=== PATIENT | female | born 1940 | race Two or more races ===

== ENCOUNTER → 2017-06-18 11:44 | Outpatient (CLI) | payer OTHER | END | disposition home or self-care (01) | LOC: LAB 11:44 | DX: E03.8 Other specified hypothyroidism (principal); D50.0 Iron deficiency anemia secondary to blood loss (chronic); I10 Essential (primary) hypertension ==

== ENCOUNTER → 2017-06-18 11:55 | Outpatient (CLI) | payer OTHER | END | disposition home or self-care (01) | LOC: RAD 11:55 | DX: M25.512 Pain in left shoulder (principal) ==

== ENCOUNTER 2017-06-18 12:30 | Outpatient (CLI) | payer OTHER | END 2017-06-18 17:00 | disposition home or self-care (01) | LOC: SONOGRAMA 12:30 | DX: M25.512 Pain in left shoulder (principal) ==

== ENCOUNTER 2018-01-14 11:35 | Outpatient (CLI) | payer OTHER | END 2018-01-14 19:57 | disposition home or self-care (01) | LOC: RAD 11:35 | DX: M19.012 Primary osteoarthritis, left shoulder (principal) ==

== ENCOUNTER 2019-05-23 08:51 | Outpatient (CLI) | payer OTHER | END 2019-05-23 08:58 | disposition home or self-care (01) | LOC: LAB 08:51 | DX: I10 Essential (primary) hypertension (principal); E78.2 Mixed hyperlipidemia ==

== ENCOUNTER 2021-09-06 09:39 | Outpatient (CLI) | payer OTHER | END 2021-09-06 09:47 | disposition home or self-care (01) | LOC: LAB 09:39 | PROVIDERS: ATTEND Internal Medicine Endocrinology, Diabetes & Metabolism | DX: E04.1 Nontoxic single thyroid nodule (principal); R10.9 Unspecified abdominal pain; E78.2 Mixed hyperlipidemia ==

== ENCOUNTER 2021-09-28 13:01 | Outpatient (CLI) | payer OTHER ==
[~2021-09-28 13:01] MED LIST: COREG CR10 MG; IBU800 MG PO; SYNTHROID150 MCG
== END 2021-09-28 13:08 | disposition home or self-care (01) ==
LOC: RAD 13:01
PROVIDERS: ATTEND Internal Medicine
DX: R05.9 Cough, unspecified (principal)

== ENCOUNTER 2021-11-06 10:29 | Inpatient (IN) | payer OTHER ==
[~2021-11-06] VITALS: Ht 121.9 cm; Wt 97.5 kg
[2021-11-06] MEDS ORDERED: CAMBIA50 MG (11:16)
[2021-11-06] MEDS ORDERED: ULTRACET PO (11:16)
--- NOTE | 2021-11-06 11:19 | NUR ---
SE RECIBE PTE ALERTA Y ORIENTADA X3 CUAL REFIREE QUE EN LOS PASDOS 3 OLIVEIRA SE LE PRINGLE DIFICULTADO RESPIRAR. PTE SAT 96% Y EN AUSCULTACION PRESENTA LEVE RONQUIDO LADO SUPERIOR IZQ . SE AUDELIA S/V Y SE UBICA.
--- NOTE | 2021-11-06 12:11 | NUR ---
SE RECIBE PTE FEMENINA DE 80 YRS ALERTA CONCITNE Y TRANQUILA EN COMPANIA DE FAMLIAR. PTE ES EVALUADA POR LA JOSE, LOERA QUIEN ORDENA TRATAMIENTO LA CUAL S EJECUTA.
--- NOTE | 2021-11-06 16:26 | NUR ---
PTE REHUSA REALZARSE CT DE PECHO ORDENADO. REFIERE SER CLAUSTROFOBICA.
== END 2021-11-16 12:51 | disposition designated cancer center or children's hospital (05) | DRG 291 ==
LOC: ER 10:29 → MEDI 21:39
PROVIDERS: ADMIT Internal Medicine; ATTEND Internal Medicine
PROC: 3E0F7GC Introduction of Other Therapeutic Substance into Respiratory Tract, Via Natural or Artificial Opening (ICD-10-PCS; principal; 2021-11-06)
PROC: BW24ZZZ Computerized Tomography (CT Scan) of Chest and Abdomen (ICD-10-PCS; 2021-11-06)
PROC: 3E0F7SF Introduction of Other Gas into Respiratory Tract, Via Natural or Artificial Opening (ICD-10-PCS; 2021-11-06)
PROC: B246ZZZ Ultrasonography of Right and Left Heart (ICD-10-PCS; 2021-11-07)
PROC: BW4FZZZ Ultrasonography of Neck (ICD-10-PCS; 2021-11-07)
PROC: BG44ZZZ Ultrasonography of Thyroid Gland (ICD-10-PCS; 2021-11-07)
DX: I11.0 Hypertensive heart disease with heart failure (principal); I50.23 Acute on chronic systolic (congestive) heart failure; I24.9 Acute ischemic heart disease, unspecified; N39.0 Urinary tract infection, site not specified; Z68.42 Body mass index [BMI] 45.0-49.9, adult; I25.10 Atherosclerotic heart disease of native coronary artery without angina pectoris; E04.9 Nontoxic goiter, unspecified; J44.9 Chronic obstructive pulmonary disease, unspecified; L40.50 Arthropathic psoriasis, unspecified; E03.9 Hypothyroidism, unspecified; E66.8 Other obesity; R06.02 Shortness of breath; B96.20 Unspecified Escherichia coli [E. coli] as the cause of diseases classified elsewhere

== ENCOUNTER → 2021-12-29 11:39 | Outpatient (CLI) | payer OTHER ==
[~2021-12-29 11:39] MED LIST changes: +CAMBIA50 MG; +ULTRACET PO
== END | disposition home or self-care (01) ==
LOC: LAB 11:39
PROVIDERS: ATTEND Internal Medicine Cardiovascular Disease
DX: I60.32 Nontraumatic subarachnoid hemorrhage from left posterior communicating artery (principal)

== ENCOUNTER 2022-02-06 11:18 | Outpatient (CLI) | payer OTHER | END 2022-02-06 11:19 | disposition home or self-care (01) | LOC: LAB 11:18 | PROVIDERS: ATTEND Internal Medicine Endocrinology, Diabetes & Metabolism | DX: E05.00 Thyrotoxicosis with diffuse goiter without thyrotoxic crisis or storm (principal); E78.2 Mixed hyperlipidemia; I10 Essential (primary) hypertension; E03.9 Hypothyroidism, unspecified; Z68.45 Body mass index [BMI] 70 or greater, adult ==

== ENCOUNTER 2022-03-23 12:36 | Outpatient (CLI) | payer OTHER | END 2022-03-23 12:40 | disposition home or self-care (01) | LOC: SONOGRAMA 12:36 | PROVIDERS: ATTEND Pathology Anatomic Pathology & Clinical Pathology | DX: D34 Benign neoplasm of thyroid gland (principal); E04.9 Nontoxic goiter, unspecified; E04.2 Nontoxic multinodular goiter ==

== ENCOUNTER 2022-10-31 12:08 | Outpatient (CLI) | payer OTHER | END 2022-10-31 12:09 | disposition home or self-care (01) | LOC: LAB 12:08 | PROVIDERS: ATTEND Internal Medicine | DX: I11.0 Hypertensive heart disease with heart failure (principal); E06.9 Thyroiditis, unspecified; N39.0 Urinary tract infection, site not specified; Z12.11 Encounter for screening for malignant neoplasm of colon; E55.9 Vitamin D deficiency, unspecified; E04.1 Nontoxic single thyroid nodule; E28.2 Polycystic ovarian syndrome; I42.0 Dilated cardiomyopathy; I50.22 Chronic systolic (congestive) heart failure ==

== ENCOUNTER 2024-02-24 14:42 | Inpatient (IN) | payer OTHER ==
[~2024-02-24] VITALS: Ht 144.8 cm; Wt 72.6 kg
[2024-02-24] MEDS ORDERED: FUROsemide 40 MG/4 ML VIAL IV SCH (16:15)
[2024-02-24 16:17] LABS: HEMATOCRIT 43.4 % (36.0-45.00); HEMOGLOBIN 14.1 g/dL (12.0-15.00); MEAN CELL VOLUME 93.5 fL (80.00-100.00); MEAN CORPUSCULAR HEMOGLOBIN 30.3 pg (27.00-32.0); MEAN CORPUSCULAR HGB CONC 32.4 g/dl (32.0-36.0); PLATELET COUNT 187 K/uL (150-450); RED BLOOD COUNT 4.64 M/uL (4.00-6.00)
[2024-02-24 16:21] LABS: RED CELL DISTRIBUTION WIDTH 16.1 % (11.5-14.5)
[2024-02-24 17:29] LABS: ABG PH 7.445 (7.35-7.45); ABG PO2 76.1 mmHg (80-100); ABG pCO2 29.7 mmHg (35-45); BASE EXCESS -2.8 mmol/l; SaO2 95.6 %
[2024-02-24 17:30] LABS: BICARBONATE 19.9 mmol/l (23-25); Tco2 20.8 mmol/l; allen test SATISFACTORY; o2 21 %; puncture site RADIAL RIGHT
[2024-02-24 17:39] LABS: CALCIUM 9.6 mg/dL (8.5-10.1); CHOL HDL RATIO 3.7 (0-5.0); CREATININE SERUM 1.56 mg/dL (0.55-1.02); GFR 31.85; POTASSIUM 4.9 mEq/L (3.5-5.1)
[2024-02-24 17:46] LABS: DIGOXIN 0.1 ng/ml (0.8-2.0)
[2024-02-24 17:55] LABS: URIC ACID 9.7 mg/dL (2.5-7.5)
[2024-02-24 18:09] LABS: INR 1.42
[2024-02-24 18:12] LABS: PROTHROMBIN TIME 15.1 SECONDS (9.0-11.5)
[2024-02-25] MEDS ORDERED: SODIUM CHLORIDE 0.45 % 1,000 ML IV SCH (11:30)
[2024-02-25] MEDS ORDERED: ENOXAPARIN SODIUM 40 MG/0.4 ML SYRINGE SUBCUTANEO SCH (11:47)
[2024-02-25] MEDS ORDERED: CARVEDILOL 6.25 MG TABLET PO SCH (11:48)
[2024-02-25] MEDS ORDERED: FUROsemide 20 MG/2 ML VIAL IV SCH (11:48)
[2024-02-25] MEDS ORDERED: NITROGLYCERIN IN 5 % DEXTROSE 50 MG/250 ML BOTTLE IV SCH (11:50)
[2024-02-25] MEDS ORDERED: COLCHICINE 0.6 MG TABLET PO SCH (11:51)
[2024-02-25] MEDS ORDERED: NITROGLYCERIN IN 5 % DEXTROSE 250 ML IV SCH (16:30)
[2024-02-26 00:18] VITALS: BP 109/71; O2SAT 100
[2024-02-26 03:30] VITALS: BP 107/69; O2SAT 100
[2024-02-26 06:51] LABS: URINE APPEARANCE Clear; URINE BILIRRUBIN Small (NEGATIVE); URINE BLOOD Moderate; URINE COLOR Dark Yellow; URINE GLUCOSE Negative (NEGATIVE); URINE KETONE Trace (NEGATIVE); URINE LEUKOCYTE Small; URINE NITRATE Negative; URINE PROTEIN 30 (NEGATIVE)
[2024-02-26 06:52] LABS: URINE BACTERIA 110.8 uL (0.0-1933); URINE CAST 1.52 uL (0.0-1.40); URINE EPITHELIAL CELLS 4.4 uL (0.0-38.8); URINE RBC 56.6 uL (0.0-20.8); URINE WBC 65.5 uL (0.0-23.2)
[2024-02-26 07:37] VITALS: BP 114/70; O2SAT 98
[2024-02-26] MEDS ORDERED: ENOXAPARIN SODIUM 30 MG/0.3 ML SYRINGE SUBCUTANEO SCH (09:00)
[2024-02-26 17:00] VITALS: BP 127/76; O2SAT 100
[2024-02-26] MEDS ORDERED: FUROsemide 20 MG/2 ML VIAL IV SCH (17:00)
[2024-02-26] MEDS ORDERED: CARVEDILOL 3.125 MG TABLET PO SCH (21:00)
[2024-02-27 01:37] VITALS: BP 104/54; O2SAT 99
[2024-02-27 06:09] LABS: HEMATOCRIT 39.9 % (36.0-45.00); MEAN CELL VOLUME 92.6 fL (80.00-100.00); MEAN CORPUSCULAR HEMOGLOBIN 30.2 pg (27.00-32.0); MEAN CORPUSCULAR HGB CONC 32.6 g/dl (32.0-36.0); PLATELET COUNT 157 K/uL (150-450); RED BLOOD COUNT 4.31 M/uL (4.00-6.00)
[2024-02-27 06:40] LABS: ALBUMIN 2.8 gm/dL (3.4-5.0); CALCIUM 8.5 mg/dL (8.5-10.1); CREATININE SERUM 1.03 mg/dL (0.55-1.02); GFR 51.43; PHOSPHOROUS 3.3 mg/dL (2.5-4.9); POTASSIUM 3.72 mEq/L (3.5-5.1)
[2024-02-27] MEDS ORDERED: PATIENTS OWN MEDICATION (MEDICAMENTO EN PISO) PO SCH (09:00)
[2024-02-27 09:27] VITALS: BP 114/68; O2SAT 98
[2024-02-27] MEDS ORDERED: AMINO ACIDS/PROTEIN HYDROLYS 30 ML BLIST.PACK PO SCH (17:00)
[2024-02-27 17:08] VITALS: BP 110/67; O2SAT 96
[2024-02-27 20:59] VITALS: BP 137/71; O2SAT 98
[2024-02-27 21:03] VITALS: O2SAT 100
[2024-02-28] VITALS (9 sets, daily range): BP systolic 100–113; BP diastolic 60–71; O2SAT 94–100
[2024-02-28] MEDS ORDERED: PATIENTS OWN MEDICATION (MEDICAMENTO EN PISO) PO SCH (17:00)
[2024-02-29] VITALS (8 sets, daily range): BP systolic 90–110; BP diastolic 56–63; O2SAT 96–100
[2024-03-01] VITALS (10 sets, daily range): BP systolic 90–179; BP diastolic 49–67; O2SAT 95–100
[2024-03-01] MEDS ORDERED: LEVOTHYROXINE SODIUM 125 MCG TABLET PO SCH (06:00)
[2024-03-01] MEDS ORDERED: FUROsemide 20 MG TABLET PO SCH (09:00)
[2024-03-01] MEDS ORDERED: FUROsemide 20 MG/2 ML VIAL IV SCH (09:00)
[2024-03-01] MEDS ORDERED: COLCHICINE 0.6 MG TABLET PO SCH (09:00)
[2024-03-02] VITALS (9 sets, daily range): BP systolic 99–113; BP diastolic 48–69; O2SAT 89–100
[2024-03-03] VITALS (9 sets, daily range): BP systolic 100–144; BP diastolic 60–74; O2SAT 86–98
[2024-03-03 07:03] LABS: ALBUMIN 2.9 gm/dL (3.4-5.0); BILIRUBIN TOTAL 0.67 mg/dL (0.3-1.2); CALCIUM 7.9 mg/dL (8.5-10.1); CREATININE SERUM 0.88 mg/dL (0.55-1.02); GFR 61.67; GLOBULINA 2.3 G/DL (2.4-3.5); PHOSPHOROUS 2.4 mg/dL (2.5-4.9); TOTAL PROTEIN 5.2 gm/dL (6.4-8.2)
[2024-03-03 07:41] LABS: POTASSIUM 2.9 mEq/L (3.5-5.1)
[2024-03-03] MEDS ORDERED: POTASSIUM CHLORIDE 20MEQ/100ML H2O PB IV SCH (12:00)
[2024-03-03] MEDS ORDERED: POTASSIUM PHOS,M-BASIC-D-BASIC 15 MM in 0.9 % SODIUM CHLORIDE 250 ML IV NR (17:00)
[2024-03-04] VITALS (8 sets, daily range): BP systolic 100–111; BP diastolic 50–77; O2SAT 87–100
[2024-03-04 07:23] LABS: CALCIUM 7.9 mg/dL (8.5-10.1); CREATININE SERUM 0.77 mg/dL (0.55-1.02); GFR 71.95
[2024-03-04 08:15] LABS: POTASSIUM 2.94 mEq/L (3.5-5.1)
[2024-03-04] MEDS ORDERED: POTASSIUM CHLORIDE 20MEQ/100ML H2O PB IV SCH (09:00)
[2024-03-04] MEDS ORDERED: SPIRONOLACTONE 25 MG TABLET PO SCH (20:23)
[2024-03-05] VITALS (8 sets, daily range): BP systolic 105–107; BP diastolic 64–69; O2SAT 90–99
[2024-03-05 06:56] LABS: CALCIUM 8.1 mg/dL (8.5-10.1); CREATININE SERUM 0.85 mg/dL (0.55-1.02); GFR 64.19; POTASSIUM 3.22 mEq/L (3.5-5.1)
[2024-03-05] MEDS ORDERED: POTASSIUM CHLORIDE 20MEQ/100ML H2O PB IV NR (17:45)
[2024-03-06 00:23] VITALS: O2SAT 99
[2024-03-06 01:07] VITALS: BP 110/74; O2SAT 98
[2024-03-06 05:47] VITALS: O2SAT 90
[2024-03-06 06:32] LABS: CALCIUM 8.6 mg/dL (8.5-10.1); CREATININE SERUM 1.07 mg/dL (0.55-1.02); GFR 49.22; POTASSIUM 3.43 mEq/L (3.5-5.1)
[2024-03-06 08:35] VITALS: O2SAT 94
[2024-03-06 08:44] VITALS: BP 102/68
== END 2024-03-06 18:38 | disposition home or self-care (01) | DRG 292 ==
LOC: ER 14:42 → SEC-K 02-25 12:14 → MEDJ 02-27 18:29
PROVIDERS: Emergency Medicine; Specialist/Technologist, Other Nephrology; ADMIT Internal Medicine; ATTEND Internal Medicine
PROC: BB24ZZZ Computerized Tomography (CT Scan) of Bilateral Lungs (ICD-10-PCS; principal; 2024-02-25)
PROC: B246ZZZ Ultrasonography of Right and Left Heart (ICD-10-PCS; 2024-02-25)
PROC: BW40ZZZ Ultrasonography of Abdomen (ICD-10-PCS; 2024-02-26)
PROC: BW21ZZZ Computerized Tomography (CT Scan) of Abdomen and Pelvis (ICD-10-PCS; 2024-02-26)
PROC: 4A12X4Z Monitoring of Cardiac Electrical Activity, External Approach (ICD-10-PCS; 2024-02-27)
DX: I13.0 Hypertensive heart and chronic kidney disease with heart failure and stage 1 through stage 4 chronic kidney disease, or unspecified chronic kidney disease (principal); J81.1 Chronic pulmonary edema; N17.8 Other acute kidney failure; J90 Pleural effusion, not elsewhere classified; I50.9 Heart failure, unspecified; E79.0 Hyperuricemia without signs of inflammatory arthritis and tophaceous disease; E03.8 Other specified hypothyroidism; E88.09 Other disorders of plasma-protein metabolism, not elsewhere classified; E87.6 Hypokalemia; I95.9 Hypotension, unspecified; K80.20 Calculus of gallbladder without cholecystitis without obstruction; N18.9 Chronic kidney disease, unspecified

== ENCOUNTER 2024-04-25 18:21 | Emergency (ER) | payer OTHER ==
[~2024-04-25] VITALS: Ht 144.8 cm; Wt 68.0 kg
[2024-04-25] MEDS ORDERED: TETANUS & DIPHTHERIA TOX,ADULT 0.5 ML VIAL IM ONE (19:00)
[2024-04-25] MEDS ORDERED: TETANUS DIPHTHERIA TOX. ADSOR 5 ML VIAL IM ONE (20:08)
== END 2024-04-26 00:08 | disposition home or self-care (01) ==
LOC: ER 18:21
DX: S09.8XXA Other specified injuries of head, initial encounter (principal); S89.91XA Unspecified injury of right lower leg, initial encounter; W19.XXXA Unspecified fall, initial encounter; Y93.89 Activity, other specified; Y92.89 Other specified places as the place of occurrence of the external cause; Y99.8 Other external cause status; I10 Essential (primary) hypertension; Z88.0 Allergy status to penicillin; Z88.2 Allergy status to sulfonamides
CPT/HCPCS: 70450; 73560; 90471; 90714; 99284; J1670

== ENCOUNTER 2024-06-03 21:59 | Inpatient (IN) | payer OTHER ==
[~2024-06-03] VITALS: Ht 167.6 cm; Wt 86.2 kg
[2024-06-03] MEDS ORDERED: FAMOtidine 10 MG/ML (4ML VIAL) IV ONE (22:30)
[2024-06-03] MEDS ORDERED: IPRATROPIUM BROMIDE 0.5 MG/2.5 ML AMPUL.NEB IH ONE (22:30)
[2024-06-03] MEDS ORDERED: METHYLPREDNISOLONE SOD SUCC 125 MG VIAL IV ONE (22:30)
[2024-06-03] MEDS ORDERED: LEVALBUTEROL HCL 1.25 MG/3 ML SOLUTION IH ONE (22:30)
[2024-06-03] MEDS ORDERED: levoFLOXacin IN DEXTROSE 5 % 500MG/100ML PIGGYBAG IV ONE ×2 (22:30→22:52)
[2024-06-03] MEDS ORDERED: FAMOTIDINE/PF 20 MG/2 ML VIAL ONE (22:52)
[2024-06-03] MEDS ORDERED: METHYLPREDNISOLONE SOD SUCC 125 MG VIAL ONE (22:52)
[2024-06-04] MEDS ORDERED: LEVALBUTEROL HCL 0.63 MG/3 ML SOLUTION IH ONE (00:28)
[2024-06-04] MEDS ORDERED: IPRATROPIUM BROMIDE 0.5 MG/2.5 ML AMPUL.NEB IH ONE ×2 (00:28→19:07)
[2024-06-04 01:30] LABS: HEMATOCRIT 45.5 % (36.0-45.00); HEMOGLOBIN 14.8 g/dL (12.0-15.00); MEAN CELL VOLUME 95.4 fL (80.00-100.00); MEAN CORPUSCULAR HEMOGLOBIN 31.1 pg (27.00-32.0); MEAN CORPUSCULAR HGB CONC 32.6 g/dl (32.0-36.0); RED BLOOD COUNT 4.77 M/uL (4.00-6.00); RED CELL DISTRIBUTION WIDTH 15.8 % (11.5-14.5)
[2024-06-04 01:43] LABS: PLATELET COUNT 128 K/uL (150-450)
[2024-06-04 01:44] LABS: ALBUMIN 3.1 gm/dL (3.4-5.0); BILIRUBIN TOTAL 2.05 mg/dL (0.3-1.2); CALCIUM 9.2 mg/dL (8.5-10.1); CREATININE SERUM 1.68 mg/dL (0.55-1.02); GFR 29.24; GLOBULINA 2.8 G/DL (2.4-3.5); INR 1.7; PARTIAL THROMBOPLASTIN TIME 31.7 SECONDS (22.0-34.0); POTASSIUM 5.02 mEq/L (3.5-5.1); TOTAL PROTEIN 5.9 gm/dL (6.4-8.2)
[2024-06-04] MEDS ORDERED: FUROsemide 20 MG/2 ML VIAL ONE ×2 (01:53→16:02)
[2024-06-04] MEDS ORDERED: NITROGLYCERIN IN 5 % DEXTROSE 50 MG/250 ML BOTTLE IV ONE (01:54)
[2024-06-04] MEDS ORDERED: FUROsemide 20 MG/2 ML VIAL IV SCH (02:00)
[2024-06-04 02:05] LABS: PROTHROMBIN TIME 17.8 SECONDS (9.0-11.5)
[2024-06-04 04:59] LABS: ABG PH 7.429 (7.35-7.45); ABG PO2 91.5 mmHg (80-100)
[2024-06-04 05:00] LABS: BASE EXCESS -4.1 mmol/l; BICARBONATE 18.8 mmol/l (23-25); Tco2 19.6 mmol/l
[2024-06-04 05:01] LABS: allen test SATISFACTORY; o2 32 %; puncture site RADIAL LEFT
[2024-06-04 05:03] LABS: SaO2 97.2 %
[2024-06-04] MEDS ORDERED: NITROGLYCERIN IN 5 % DEXTROSE 250 ML IV SCH ×2 (09:00→11:30)
[2024-06-04] MEDS ORDERED: CHLORHEXIDINE GLUCONATE 120 ML BOTTLE TOP ONE (09:08)
[2024-06-04 12:59] VITALS: BP 124/86
[2024-06-04] MEDS ORDERED: SODIUM CHLORIDE 0.45 % 1,000 ML IV SCH (15:00)
[2024-06-04] MEDS ORDERED: IPRATROPIUM BROMIDE 0.5 MG/2.5 ML AMPUL.NEB IH SCH ×2 (17:00)
[2024-06-04 17:24] VITALS: BP 103/81; O2SAT 100
[2024-06-04 19:51] VITALS: BP 113/87; O2SAT 100
[2024-06-04 21:38] VITALS: BP 103/80; O2SAT 100
[2024-06-04 21:40] VITALS: BP 113/79; O2SAT 100
[2024-06-04 23:27] VITALS: BP 121/77; O2SAT 99
[2024-06-05] VITALS (11 sets, daily range): BP systolic 80–127; BP diastolic 54–80; O2SAT 92–100
[2024-06-05 00:25] LABS: URINE APPEARANCE Clear; URINE BILIRRUBIN Negative (NEGATIVE); URINE BLOOD Moderate; URINE COLOR Yellow; URINE GLUCOSE Negative (NEGATIVE); URINE KETONE Negative (NEGATIVE); URINE LEUKOCYTE Small; URINE NITRATE Positive; URINE PROTEIN Trace (NEGATIVE); URINE UROBILINOGEN 0.2 E.U./dl
[2024-06-05 00:29] LABS: URINE BACTERIA 9276.1 uL (0.0-1933); URINE CAST 6.03 uL (0.0-1.40); URINE EPITHELIAL CELLS 3.6 uL (0.0-38.8); URINE RBC 68.3 uL (0.0-20.8); URINE WBC 109.5 uL (0.0-23.2)
[2024-06-05] MEDS ORDERED: LEVOTHYROXINE SODIUM 150 MCG TABLET PO SCH (06:00)
[2024-06-05 07:31] LABS: INR 1.64; PARTIAL THROMBOPLASTIN TIME 31.8 SECONDS (22.0-34.0)
[2024-06-05 07:52] LABS: PROTHROMBIN TIME 17.2 SECONDS (9.0-11.5)
[2024-06-05] MEDS ORDERED: FUROsemide 20 MG/2 ML VIAL IV SCH (09:00)
[2024-06-05] MEDS ORDERED: LEVALBUTEROL HCL 0.63 MG/3 ML SOLUTION IH SCH (17:40)
[2024-06-05] MEDS ORDERED: levoFLOXacin IN DEXTROSE 5 % 100 ML IV SCH (17:44)
[2024-06-05] MEDS ORDERED: VANCOMYCIN HCL 500 MG VIAL IV SCH (17:49)
[2024-06-05] MEDS ORDERED: IPRATROPIUM BROMIDE 0.5 MG/2.5 ML AMPUL.NEB IH ONE (18:23)
[2024-06-05] MEDS ORDERED: BUDESONIDE 0.5 MG/2 ML AMPUL.NEB IH SCH ×2 (18:30→21:00)
[2024-06-06] VITALS (11 sets, daily range): BP systolic 87–130; BP diastolic 61–79; O2SAT 90–100
[2024-06-06] MEDS ORDERED: BUDESONIDE 0.5 MG/2 ML AMPUL.NEB IH ONE (08:04)
[2024-06-06] MEDS ORDERED: LEVALBUTEROL HCL 0.63 MG/3 ML SOLUTION IH ONE (08:05)
[2024-06-06] MEDS ORDERED: levoFLOXacin IN DEXTROSE 5 % 500MG/100ML PIGGYBAG IV ONE (08:56)
[2024-06-06] MEDS ORDERED: FUROsemide 20 MG/2 ML VIAL ONE (08:56)
[2024-06-06] MEDS ORDERED: VANCOMYCIN HCL 5 MG/ML REDILUIDO IV SCH (09:00)
[2024-06-06] MEDS ORDERED: ENOXAPARIN SODIUM 30 MG/0.3 ML SYRINGE SUBCUTANEO SCH (17:00)
[2024-06-06] MEDS ORDERED: MEROPENEM 500 MG/VIAL VIAL IV SCH (21:00)
[2024-06-07] VITALS (7 sets, daily range): BP systolic 95–122; BP diastolic 60–85; O2SAT 90–98
[2024-06-07 07:47] LABS: HEMATOCRIT 47.5 % (36.0-45.00); HEMOGLOBIN 15.9 g/dL (12.0-15.00); MEAN CELL VOLUME 94.3 fL (80.00-100.00); MEAN CORPUSCULAR HEMOGLOBIN 31.7 pg (27.00-32.0); MEAN CORPUSCULAR HGB CONC 33.5 g/dl (32.0-36.0); RED BLOOD COUNT 5.03 M/uL (4.00-6.00); RED CELL DISTRIBUTION WIDTH 16.6 % (11.5-14.5)
[2024-06-07 07:52] LABS: PLATELET COUNT 114 K/uL (150-450)
[2024-06-07 08:28] LABS: BILIRUBIN TOTAL 1.55 mg/dL (0.3-1.2); CALCIUM 9.1 mg/dL (8.5-10.1); CREATININE SERUM 1.2 mg/dL (0.55-1.02); GFR 43.12; GLOBULINA 2.7 G/DL (2.4-3.5); MAGNESIUM 1.6 mg/dL (1.8-2.4); POTASSIUM 3.81 mEq/L (3.5-5.1); TOTAL PROTEIN 5.7 gm/dL (6.4-8.2)
[2024-06-07 08:41] LABS: C-REACTIVE PROTEIN 5.82 MG/DL (0.00-0.29)
[2024-06-08] VITALS (7 sets, daily range): BP systolic 101–105; BP diastolic 62–68; O2SAT 93–99
[2024-06-08] MEDS ORDERED: LOSARTAN POTASSIUM 25 MG TABLET PO SCH (09:00)
[2024-06-09] VITALS (9 sets, daily range): BP systolic 87–127; BP diastolic 56–69; O2SAT 96–100
[2024-06-09 09:23] LABS: ALBUMIN 2.5 gm/dL (3.4-5.0); CALCIUM 8.5 mg/dL (8.5-10.1); CREATININE SERUM 0.96 mg/dL (0.55-1.02); GFR 55.78; POTASSIUM 3.05 mEq/L (3.5-5.1)
[2024-06-09 11:33] LABS: PH,URINE 5.5 (5.0-8.0); URINE APPEARANCE Clear; URINE BILIRRUBIN Negative (NEGATIVE); URINE BLOOD Small; URINE COLOR Yellow; URINE GLUCOSE Negative (NEGATIVE); URINE KETONE Negative (NEGATIVE); URINE LEUKOCYTE Negative; URINE NITRATE Negative; URINE PROTEIN Negative (NEGATIVE); URINE UROBILINOGEN 0.2 E.U./dl
[2024-06-09 11:38] LABS: URINE RBC 11.1 uL (0.0-20.8); URINE WBC 3.1 uL (0.0-23.2)
[2024-06-09 11:53] LABS: URINE BACTERIA 2.4 uL (0.0-1933); URINE CAST 0.58 uL (0.0-1.40); URINE EPITHELIAL CELLS 0.4 uL (0.0-38.8)
[2024-06-09] MEDS ORDERED: POTASSIUM CHLORIDE 20MEQ/100ML H2O PB IV SCH (17:00)
[2024-06-10] VITALS (9 sets, daily range): BP systolic 84–113; BP diastolic 50–62; O2SAT 95–99
[2024-06-11] VITALS (8 sets, daily range): BP systolic 101–106; BP diastolic 65–80; O2SAT 89–99
[2024-06-12] VITALS (9 sets, daily range): BP systolic 90–128; BP diastolic 57–90; O2SAT 92–99
[2024-06-12 05:46] LABS: HEMATOCRIT 44.6 % (36.0-45.00); HEMOGLOBIN 14.6 g/dL (12.0-15.00); MEAN CELL VOLUME 94.3 fL (80.00-100.00); MEAN CORPUSCULAR HEMOGLOBIN 30.8 pg (27.00-32.0); MEAN CORPUSCULAR HGB CONC 32.7 g/dl (32.0-36.0); PLATELET COUNT 151 K/uL (150-450); RED BLOOD COUNT 4.73 M/uL (4.00-6.00); RED CELL DISTRIBUTION WIDTH 15.7 % (11.5-14.5)
[2024-06-12] MEDS ORDERED: BUDESONIDE 0.5 MG/2 ML AMPUL.NEB IH SCH (09:00)
[2024-06-13 01:22] VITALS: BP 127/60
[2024-06-13 02:00] VITALS: O2SAT 90
[2024-06-13 05:44] VITALS: O2SAT 97
[2024-06-13 07:22] LABS: ALBUMIN 2.4 gm/dL (3.4-5.0); CALCIUM 8.2 mg/dL (8.5-10.1); CREATININE SERUM 0.83 mg/dL (0.55-1.02); GFR 65.98; POTASSIUM 3.42 mEq/L (3.5-5.1)
[2024-06-13 08:09] VITALS: BP 99/61
[2024-06-13 09:01] LABS: PHOSPHOROUS 1.4 mg/dL (2.5-4.9)
[2024-06-13 09:32] VITALS: O2SAT 0
[2024-06-13] MEDS ORDERED: NAPH,MB-DB/K PH,MBDB 1 PKT PACKET PO STA (11:21)
[2024-06-13] MEDS ORDERED: POTASSIUM PHOS,M-BASIC-D-BASIC 3 MM/ML VIAL IV ONE (12:00)
== END 2024-06-13 12:45 | disposition home or self-care (01) | DRG 292 ==
LOC: ER 21:59 → ICU-2 06-04 16:06 → MEDJ 06-06 10:36
PROVIDERS: General Practice; Internal Medicine Infectious Disease; Specialist/Technologist, Other Nephrology; ADMIT Internal Medicine; ATTEND Internal Medicine
PROC: BR20ZZZ Computerized Tomography (CT Scan) of Cervical Spine (ICD-10-PCS; principal; 2024-06-03)
PROC: B020ZZZ Computerized Tomography (CT Scan) of Brain (ICD-10-PCS; 2024-06-03)
PROC: BW24ZZZ Computerized Tomography (CT Scan) of Chest and Abdomen (ICD-10-PCS; 2024-06-03)
PROC: B24BYZZ Ultrasonography of Heart with Aorta using Other Contrast (ICD-10-PCS; 2024-06-05)
PROC: 4A12X4Z Monitoring of Cardiac Electrical Activity, External Approach (ICD-10-PCS; 2024-06-06)
DX: I50.9 Heart failure, unspecified (principal); I31.39 Other pericardial effusion (noninflammatory); N39.0 Urinary tract infection, site not specified; J44.9 Chronic obstructive pulmonary disease, unspecified; I11.0 Hypertensive heart disease with heart failure; I12.9 Hypertensive chronic kidney disease with stage 1 through stage 4 chronic kidney disease, or unspecified chronic kidney disease; N18.30 Chronic kidney disease, stage 3 unspecified; E03.9 Hypothyroidism, unspecified